=== PATIENT | female | born 1975 | race Caucasian/White ===

== ENCOUNTER 2017-10-25 07:09 | Outpatient (CLI) | payer BC ==
--- NOTE | 2017-10-25 08:29 | MRI ---
MRI OF LEFT FOREFOOT WITH AND WITHOUT IV CONTRAST: DATE: 10/25/17. PROVIDED CLINICAL HISTORY: Painful lesion on great toe for 4 years. FINDINGS: There is minimal signal inhomogeneity involving the great toe distal phalanx involving the medullary bone of the terminal tuft. This has increased signal on fluid-sensitive sequences to a minimal degre e, without corresponding alteration of signal intensity on the T1 non-fat saturated images. The post contrast images with fat saturation are limited in evaluation of this area due to inhomogeneous fat s aturation. The postcontrast non-fat saturated images demonstrate no definite contrast enhancement in the region of the distal phalanx or surrounding nail/nailbed. There is no evidence for subungual ex ostosis. No regional joint effusion is evident. No abnormal contrast enhancement is identified else where either. Alignment appears anatomic. Joint spaces appear preserved. The dorsal extensor and plantar flexor tendons demonstrate an intact MR appearance. The MTP joint ca psules appear intact. There is no evidence for Aldana neuroma. IMPRESSION: Minimal nonspecific marrow signal alteration within the great toe distal phalanx which may reflect re active edema. No evidence for a discrete enhancing soft tissue or osseous lesion. POS: DANNY
[2017-10-25] MEDS ORDERED: Gadobenate Dimeglumine 529 MG/1 ML (20ML VIAL) ONE (11:55)
== END 2017-10-25 07:10 | disposition home or self-care (01) ==
LOC: MRI 07:09
PROVIDERS: ATTEND Podiatrist Foot & Ankle Surgery
DX: D18.01 Hemangioma of skin and subcutaneous tissue (principal)
CPT/HCPCS: A9579

== ENCOUNTER 2018-01-10 14:19 | Outpatient (CLI) | payer BC | END 2018-01-10 14:20 | disposition home or self-care (01) | LOC: LABBT 14:19 | PROVIDERS: ATTEND Podiatrist Foot & Ankle Surgery | DX: Z01.818 Encounter for other preprocedural examination (principal); D16.32 Benign neoplasm of short bones of left lower limb ==

== ENCOUNTER 2018-01-11 10:16 | Day surgery (SDC) | payer BC, OTHER ==
[2018-01-10 14:45] VITALS: BMI 22.9
[2018-01-11] MEDS ORDERED: Lidocaine 1% PF 5 ML VIAL ONE (10:46)
[2018-01-11] MEDS ORDERED: ePHEDrine/0.9% NaCl/PF SYRINGE 50 mg/10 ml ONE (10:46)
[2018-01-11] MEDS ORDERED: Ketorolac Tromethamine 30 MG/ML VIAL ONE (10:46)
[2018-01-11] MEDS ORDERED: Ondansetron HCl/PF 4 MG/2 ML Vial ONE ×2 (10:46→12:46)
[2018-01-11] MEDS ORDERED: PROPOFOL 200 MG/20 ML VIAL ONE (10:46)
[2018-01-11] MEDS ORDERED: Clindamycin/D5W 900 mg/50 ml Premix Bag ONE (11:43)
[2018-01-11] MEDS ORDERED: Fentanyl 100 MCG/2 ML VIAL ONE (12:06)
[2018-01-11] MEDS ORDERED: Famotidine/PF 20 mg/2ml Vial ONE (12:08)
[2018-01-11] MEDS ORDERED: Midazolam HCl 2 mg/2 ml Vial ONE (12:23)
[2018-01-11] MEDS ORDERED: Bupivacaine PF 0.5% 30 ML VIAL ONE (12:45)
--- NOTE | 2018-01-11 13:43 | OP ---
DATE OF OPERATION: 01/11/2018 SURGEON: Kingsley Johnson DPM. PREOPERATIVE DIAGNOSIS: Osteochondroma, left great toe, distal phalanx. POSTOPERATIVE DIAGNOSIS: Osteochondroma, left great toe, distal phalanx. PROCEDURE PERFORMED: Resection of osteochondroma, left great toe, distal phalanx. PATHOLOGY: Bone taken from the distal phalanx, left great toe for gross and microscopic evaluation. ANESTHESIA: Local with monitored anesthetic care. HEMOSTASIS: Pneumatic tourniquet about the left ankle at 250 mmHg. ESTIMATED BLOOD LOSS: None. MATERIALS: 1. 4-0 Vicryl. 2. 4-0 nylon. INJECTABLES: mL 0.5% Marcaine plain preoperatively. COMPLICATIONS: None. SUMMARY OF PROCEDURE: Patient was brought to the operative suite, placed supine on the operative tab le. Time out performed identifying correct patient, procedure and operative site. Once adequate ane sthesia was achieved, preoperative injectables were applied about the operative site. A well-padded tourniquet was placed about the left ankle. The foot was prepped and draped in aseptic manner and to urniquet was raised to 250 mmHg. A 2 cm linear longitudinal incision was made in the distal aspect o f the left hallux. Sharp and blunt dissection through subcutaneous tissues down to the tip of the di stal phalanx. It was evaluated at that time noted that there was a cartilaginous cap prominence on t he distal medial aspect of the distal phalanx. This was resected in hole and sent for pathological e valuation. The distal phalanx was evaluated and noted no further bony prominences. All edges were s moothed with bone rasp. The wound was irrigated with sterile saline. The subcutaneous tissues were repaired with 4-0 Vicryl and skin with 4-0 nylon. Bandages applied including Xeroform gauze, roll ga uze and Garrett wrap. The patient tolerated the procedure and anesthesia well. Tourniquet was released noting immediate hyperemia to the distal aspect of all toes. The patient was transferred out of the operative suite. Vital signs stable and neurovascular status intact and she will be kept for a short period of monitoring and discharged home with aftercare instructions and follow up with me in 1 week .
--- NOTE | 2018-01-11 13:59 | RAD ---
LEFT BIG TOE 3 VIEWS: Date: 01/11/18 HISTORY: Surgery. Osteochondroma. FINDINGS: Joint spaces are preserved. Minimal osteophytosis. No acute fracture, dislocation, or radiopaque fore ign bodies, or aggressive osseous erosions. Soft tissue irregularity of the distal tuft may reflect u lceration or laceration. IMPRESSION: No acute osseous abnormalities are demonstrated. POS: JEAN PIERRE
== END 2018-01-11 15:15 | disposition home or self-care (01) ==
LOC: SDC 10:16
PROVIDERS: ATTEND Podiatrist Foot & Ankle Surgery
PROC: 0QBR0ZZ Excision of Left Toe Phalanx, Open Approach (ICD-10-PCS; principal; 2018-01-11)
DX: D16.32 Benign neoplasm of short bones of left lower limb (principal); Z88.2 Allergy status to sulfonamides; Z88.1 Allergy status to other antibiotic agents; Z79.899 Other long term (current) drug therapy
CPT/HCPCS: 88305; 88311; J0131; J1885; J2001; J2250; J2405; J2704; J3010; J3490; S0020; S0028

== ENCOUNTER 2018-05-17 00:39 | Emergency (ER) | payer BC ==
[2018-05-17] MEDS ORDERED: diphenhydrAMINE 50 MG/ML VIAL ONE (00:59)
[2018-05-17] MEDS ORDERED: Metoclopramide HCl 10 MG/2 ML VIAL ONE (00:59)
[2018-05-17] MEDS ORDERED: Ketorolac Tromethamine 30 MG/ML VIAL ONE (01:50)
== END 2018-05-17 02:26 | disposition home or self-care (01) ==
LOC: SCSER 00:39
DX: R51 Headache (principal)
CPT/HCPCS: 96365; 96375; J1200; J1885; J2765

== ENCOUNTER 2024-01-08 12:04 | Outpatient (CLI) | payer BC | END 2024-01-08 12:05 | disposition home or self-care (01) | LOC: RAD 12:04 | PROVIDERS: ATTEND Obstetrics & Gynecology Female Pelvic Medicine and Reconstructive Surgery | DX: Z01.818 Encounter for other preprocedural examination (principal) | CPT/HCPCS: 71046 ==

== ENCOUNTER 2024-01-09 11:05 | Outpatient (CLI) | payer BC | END 2024-01-09 11:06 | disposition home or self-care (01) | LOC: EKG 11:05 | PROVIDERS: ATTEND Obstetrics & Gynecology Female Pelvic Medicine and Reconstructive Surgery | DX: Z01.810 Encounter for preprocedural cardiovascular examination (principal); N81.3 Complete uterovaginal prolapse | CPT/HCPCS: 93005; 93010 ==